=== PATIENT | male | born 1990 ===

== ENCOUNTER 2017-07-08 00:47 | Emergency (ER) | payer OTHER ==
[2017-07-08 00:57] VITALS: BP 129/69; PULSE 87; RESP 18; TEMP 97.6; O2SAT 99
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
== END 2017-07-08 02:09 | disposition home or self-care (01) ==
LOC: H.ER 00:47
DX: M79.605 Pain in left leg (principal); V43.62XA Car passenger injured in collision with other type car in traffic accident, initial encounter; Y92.410 Unspecified street and highway as the place of occurrence of the external cause